=== PATIENT | female | born 1995 | race Caucasian/White ===

== ENCOUNTER 2018-05-05 11:44 | Emergency (ER) | payer OTHER ==
[2018-05-05 11:50] VITALS: BP 114/63; PULSE 72; RESP 18; TEMP 97.8; O2SAT 100
--- NOTE | 2018-05-05 13:29 | ED PDOC ---
HPI: Abdomen Time Seen by Provider: 05/05/18 12:00 Chief Complaint (Nursing): GI Problem Chief Complaint (Provider): GI Problem History Per: Patient History/Exam Limitations: language barrier ([facility] director #[id number]) Onset/Duration Of Symptoms: Days (x 3 weeks) Current Symptoms Are (Timing): Still Present Location Of Pain/Discomfort: Diffuse Quality Of Discomfort: "Pain" Associated Symptoms: denies: Fever, Chills, Nausea, Vomiting Additional Complaint(s): 22 year old () female presents to the ED with LLQ radiating to the rest of the abdomen for the last 3 days. She is about five weeks with her LMP on 03/04/2018. The patient came here from [place] in September of this year and is currently requesting that her translates for her. Last time in the ED on 05/03/18 [place] [address] and she had a normal ultrasound performed. She denies fever, nausea, vomiting, diarrhea. PMD: none provided Past Medical History Reviewed: Historical Data, Nursing Documentation, Vital Signs Vital Signs: Last Vital Signs Temp 97.8 F 05/05/18 11:47 Pulse 72 05/05/18 11:47 Resp 18 05/05/18 11:47 BP 114/63 05/05/18 11:47 Pulse Ox 100 05/05/18 11:47 - Medical History PMH: No Chronic Diseases - Surgical History Surgical History: No Surg Hx - Family History Family History: States: Unknown Family Hx - Immunization History Hx Tetanus Toxoid Vaccination: No Hx Influenza Vaccination: No Hx Pneumococcal Vaccination: No - Home Medications Home Medications: Ambulatory Orders Medication Instructions Recorded Cephalexin [Keflex] 500 mg PO TID #30 capsule 11/10/17 - Allergies Allergies/Adverse Reactions: Allergies Allergy/AdvReac Type Severity Reaction Status Date / Time No Known Allergies Allergy Verified 05/05/18 11:50 Review of Systems ROS Statement: Except As Marked, All Systems Reviewed And Found Negative Constitutional: Negative for: Fever Gastrointestinal: Positive for: Abdominal Pain (left sided radating to entire abdomen). Negative for: Nausea Physical Exam - Reviewed Nursing Documentation Reviewed: Yes Vital Signs Reviewed: Yes - Physical Exam Appears: Positive for: Non-toxic, No Acute Distress Head Exam: Positive for: ATRAUMATIC, NORMAL INSPECTION, NORMOCEPHALIC Skin: Positive for: Normal Color, Warm, Dry Eye Exam: Positive for: EOMI, Normal appearance, PERRL Neck: Positive for: Normal, Painless ROM, Supple Cardiovascular/Chest: Positive for: Regular Rate, Rhythm. Negative for: Murmur Respiratory: Positive for: Normal Breath Sounds. Negative for: Wheezing, Respiratory Distress Gastrointestinal/Abdominal: Positive for: Soft, Tenderness (diffuse tendnerness). Negative for: Guarding Extremity: Positive for: Normal ROM (upper and lower extremities). Negative for: Deformity Neurologic/Psych: Positive for: Alert, Oriented. Negative for: Motor/Sensory Deficits - Laboratory Results Result Diagrams: 05/05/18 14:10 - ECG O2 Sat by Pulse Oximetry: 100 (RA) Pulse Ox Interpretation: Normal Medical Decision Making Medical Decision Makin:52 --Beta HCG --CBC --CMP --Pepcid 20 mg IV --Zofran inj 4 mg IVP --Urine cx --UA Transvaginal US 05/03/2018 PROCEDURE: OB Pelvic Ultrasound HISTORY: preg and pain COMPARISON: None available. FINDINGS: UTERUS: Single Live intrauterine gestation. CRL measures 0.2 cm equivalent to 5 weeks and 5 days of gestational age. Gestational sac diameter measures 1.1 cm equivalent to 5 weeks and 1 day of ges tational age. age (Ultrasound estimated): 5 weeks and 3 days Date of delivery (Ultrasound estimated) : 12/31/2018 Heart rate: 113 bpm. Agnes-gestational hemorrhage: None. Uterus measures 11.5 x 5.5 x 6.4 cm. No mass CERVIX: Long and closed. No cervical abnormality seen. RIGHT OVARY: Measures 2.7 x 1.5 x 2.0 cm. No mass. Normal flow. LEFT OVARY: Measures 2.7 x 1.5 x 2.5 cm. No mass. Normal flow. FREE FLUID: None. OTHER FINDINGS: None. IMPRESSION: Single live intrauterine gestation with mean gestational age of 5 weeks and 3 days. The estimated date of delivery by ultrasound is 12/31/2018. 15:00 --Patient signed out to Dr. Malik by this provider pending US, labs and reevaluation. Scribe Attestation: Documented by Lili Foster acting as a scribe for Bimal Rodriguez MD Provider Scribe Attestation: All medical record entries made by the Scribe were at my direction and personally dictated by me. I have reviewed the chart and agree that the record accurately reflects my personal performance of the history, physical exam, medical decision making, and the department course for this patient. I have also personally directed, reviewed, and agree with the discharge instructions and disposition. Disposition - Patient ED Disposition Is Patient to be Admitted: Transfer of Care - Disposition Disposition: Routine/Home Disposition Time: 15:00 Forms: [employer] (Ukrainian) Patient Signed Over To: Janine Malik
[2018-05-05] MEDS: Sodium Chloride 0.9% 1,000 ML IV STA (14:24)
[2018-05-05 14:38] LABS: SQUAMOUS EPITHIAL 7 /hpf (0-5); URINE BACTERIA RARE (<OCC); URINE BILIRUBIN NEGATIVE (NEGATIVE); URINE BLOOD NEGATIVE (NEGATIVE); URINE CLARITY CLOUDY (Clear); URINE COLOR YELLOW (YELLOW); URINE GLUCOSE (UA) NEG (Normal); URINE LEUKOCYTE ESTERASE TRACE Leu/uL (Negative); URINE PROTEIN 100 mg/dL (NEGATIVE); URINE UROBILINOGEN 0.2-1.0 mg/dL (0.2-1.0)
[2018-05-05 14:45] LABS: ALB/GLOB RATIO 1.4 (1.0-2.1); ALBUMIN 4.8 g/dL (3.5-5.0); ALT/SGPT 29 U/L (9-52); AST/SGOT 20 U/L (14-36); BLOOD UREA NITROGEN 12 mg/dl (7-17); CALCIUM 9.4 mg/dL (8.4-10.2); GFR NON-AFRICAN AMERICAN > 60
[2018-05-05 14:55] LABS: BASO % 0.3 % (0.0-2.0); EOS % 0.2 % (0.0-4.0); HEMOGLOBIN 13.1 g/dL (12.0-16.0); LYMPH # 2.1 K/uL (1.0-4.3); MEAN CORPUSCULAR HEMOGLOBIN 29.9 pg (27.0-31.0); MEAN CORPUSCULAR HGB CONC 33.2 g/dL (33.0-37.0); MEAN PLATELET VOLUME 8.7 fl (7.2-11.7); MONO # 0.5 K/uL (0.0-0.8); MONO % 5.5 % (0.0-10.0); NEUT # 7.2 K/uL (1.8-7.0); NRBC % 0.1 % (0.0-0.0); RBC 4.37 Mil/uL (3.80-5.20); RED CELL DISTRIBUTION WIDTH 13.9 % (11.5-14.5); WHITE BLOOD COUNT 9.8 K/uL (4.8-10.8)
--- NOTE | 2018-05-05 16:16 | ED PDOC ---
- Laboratory Results Result Diagrams: 05/05/18 14:10 05/05/18 14:10 - ECG O2 Sat by Pulse Oximetry: 100 (RA) Pulse Ox Interpretation: Normal Medical Decision Making Medical Decision Makin --Patient endorsed to this provider by Dr. Rodriguez pending US results, labs and reevaluation. 17:18 Abdomen US FINDINGS: LIVER: Measures 12.7 cm. Patent portal vein. Portal venous flow: Hepatopetal. Unremarkable echogenicity of the liver parenchyma. No mass. No intrahepatic bile duct dilatation. GALLBLADDER: Unremarkable. No gallstones. COMMON BILE DUCT: Measures 3.9 mm. No stones. No dilatation. PANCREAS: Unremarkable as visualized. No mass. No ductal dilatation. RIGHT KIDNEY: Measures 3.7 x 10.3cm. Normal echogenicity. No calculus, mass, or hydronephrosis. LEFT KIDNEY: Measures 3.9 x 10.1cm. Normal echogenicity. No calculus, mass, or hydronephrosis. SPLEEN: Normal in size and contour. No mass. AORTA: No aneurysmal dilatation. IVC: Unremarkable. OTHER FINDINGS: None. IMPRESSION: Unremarkable abdominal sonogram. 17:40 -Spoke with patient and , will be given Rx for Macrobid for UTI and Diclegis for nausea and vomiting. First dose of antibiotics will be given in the ED. -------- --------- Scribe Attestation: Documented by Lili Foster acting as a scribe for Janine Malik MD Provider Scribe Attestation: All medical record entries made by the Scribe were at my direction and personally dictated by me. I have reviewed the chart and agree that the record accurately reflects my personal performance of the history, physical exam, medical decision making, and the department course for this patient. I have also personally directed, reviewed, and agree with the discharge instructions and d isposition. Disposition - Disposition Forms: [employer] ([place]estinian)
--- NOTE | 2018-05-05 17:21 | US ---
Date of service: 05/05/2018 HISTORY: left sided abdominal pain COMPARISON: None. TECHNIQUE: Sonographic evaluation of the abdomen. FINDINGS: LIVER: Measures 12.7 cm. Patent portal vein. Portal venous flow: Hepatopetal. Unremarkable echogenicity of the liver parenchyma. No mass. No intrahepatic bile duct dilatation. GALLBLADDER: Unremarkable. No gallstones. COMMON BILE DUCT: Measures 3.9 mm. No stones. No dilatation. PANCREAS: Unremarkable as visualized. No mass. No ductal dilatation. RIGHT KIDNEY: Measures 3.7 x 10.3cm. Normal echogenicity. No calculus, mass, or hydronephrosis. LEFT KIDNEY: Measures 3.9 x 10.1cm. Normal echogenicity. No calculus, mass, or hydronephrosis. SPLEEN: Normal in size and contour. No mass. AORTA: No aneurysmal dilatation. IVC: Unremarkable. OTHER FINDINGS: None. IMPRESSION: Unremarkable abdominal sonogram.
== END 2018-05-05 18:03 | disposition home or self-care (01) ==
LOC: H.ER 11:44
DX: O23.41 Unspecified infection of urinary tract in pregnancy, first trimester (principal); O21.9 Vomiting of pregnancy, unspecified; Z3A.01 Less than 8 weeks gestation of pregnancy
CPT/HCPCS: 76700; 80053; 81003; 84702; 85025; 87086; 96361; 96374; 96375; 99283; J2405; J7030